=== PATIENT | female | born 1990 | race American Indian/Alaskan Native ===

== ENCOUNTER 2019-12-24 07:18 | Emergency (ER) | payer OTHER ==
[2019-12-24 08:01] LABS: Bacteria,Urine 2+ /HPF (Negative); Bilirubin,Urine NEG (Negative); Blood,Urine LG (Negative); Color,Urine Yellow (Yellow); Urobilinogen,Urine < 2.0 mg/dL (<2.0)
[2019-12-24 08:08] LABS: WBC,Urine > 182.0 /HPF (0.0-6.0)
--- NOTE | 2019-12-24 08:18 | Emergency Department Report ---
ED Female HPI - General Chief complaint: Urogenital-Female Stated complaint: UTI,SIDE PAIN Time Seen by Provider: 12/24/19 07:54 Source: patient Mode of arrival: Ambulatory Limitations: No Limitations - History of Present Illness Initial comments: 29-year-old -[place] female presents to the emergency room for urinary tract symptoms for the last 2 days. Patient reports that she has pelvic pain that radiates to her right lateral abdominal side. Patient also admits to dysuria, cloudy urine and an odor to her urine. Patient denies any unprotected intercourse, no vaginal or vaginal bleeding or discharge. Patient does admit to chills and feels like she has had a fever at times. She does report ibuprofen helps out a lot. Her last dose was this morning. She denies any past medical history currently takes no medications on a daily basis and is allergic to codeine. Patient denies any nausea vomiting and reports she is able to drink without difficulties. MD Complaint: dysuria, pelvic pain Onset/Timin -: days(s) Location: suprapubic Radiation: RLQ Severity scale (0 -10): 7 Quality: sharp Consistency: intermittent Improves with: medication Worsens with: urination Are you Now?: No Last Menstrual Period: 12/01/19 EDC: 09/06/20 Associated Symptoms: fever/chills, dysuria. denies: abdominal pain, nausea/vomiting - Related Data Sexually active: Yes Previous Rx's Medication Instructions Recorded Last Taken Type Nitrofurantoin Taliaferro/M-Cryst 100 mg PO Q12HR 10 Days #20 capsule 12/24/19 Unknown Rx [Macrobid CAP] Allergies Allergy/AdvReac Type Severity Reaction Status Date / Time codeine Allergy Rash Verified 12/24/19 07:22 ED Review of Systems ROS: Stated complaint: UTI,SIDE PAIN Other details as noted in HPI Comment: All other systems reviewed and negative ED Past Medical Hx - Past Medical History Previous Medical History?: Yes - Surgical History Past Surgical History?: Yes Additional Surgical History: Leep procedure - Social History Smoking Status: Never Smoker Substance Use Type: Alcohol - Medications Home Medications: Home Medications Medication Instructions Recorded Confirmed Last Taken Type Nitrofurantoin Taliaferro/M-Cryst 100 mg PO Q12HR 10 Days #20 capsule 12/24/19 Unknown Rx [Macrobid CAP] ED Physical Exam - General Limitations: No Limitations General appearance: alert, in no apparent distress - Head Head exam: Present: atraumatic, normocephalic - Eye Eye exam: Present: normal appearance - ENT ENT exam: Present: mucous membranes moist - Neck Neck exam: Present: normal inspection, full ROM - Respiratory Respiratory exam: Present: normal lung sounds bilaterally - Cardiovascular Cardiovascular Exam: Present: regular rate, normal rhythm, normal heart sounds. Absent: tachycardia - GI/Abdominal GI/Abdominal exam: Present: soft, tenderness (Suprapubic). Absent: distended, guarding, rebound - Back Exam Back exam: Present: normal inspection, full ROM, CVA tenderness (R) - Neurological Exam Neurological exam: Present: alert, oriented X3, normal gait - Psychiatric Psychiatric exam: Present: normal affect, normal mood - Skin Skin exam: Present: warm, dry, intact, normal color. Absent: rash ED Course Vital Signs 12/24/19 07:23 Temperature 99.7 F H Pulse Rate 106 H Respiratory 16 Rate Blood Pressure 109/73 O2 Sat by Pulse 94 Oximetry ED Medical Decision Making - Lab Data Laboratory Tests 12/24/19 07:42 Urine Color Yellow Urine Turbidity Cloudy Urine pH 6.0 Ur Specific Amelia 1.010 Urine Protein 30 mg/dl Urine Glucose (UA) Neg Urine Ketones Neg Urine Blood Lg Urine Nitrite Neg Urine Bilirubin Neg Urine Urobilinogen < 2.0 Ur Leukocyte Esterase Lg Urine WBC (Auto) > 182.0 H Urine RBC (Auto) 70.0 U Epithel Cells (Auto) 19.0 H Urine Bacteria (Auto) 2+ - Medical Decision Making 29-year-old -[place] female presents to the emergency room for urinary tract symptoms for the last 2 days. Patient reports that she has pelvic pain that radiates to her right lateral abdominal side. Patient also admits to dysuria, cloudy urine and an odor to her urine. Patient denies any unprotected intercourse, no vaginal or vaginal bleeding or discharge. Patient does admit to chills and feels like she has had a fever at times. She does report ibuprofen helps out a lot. Her last dose was this morning. She denies any past medical history currently takes no medications on a daily basis and is allergic to codeine. Patient denies any nausea vomiting and reports she is able to drink without difficulties. Patient will be treated with Macrobid encouraged to take ibuprofen. Instructed to increase her water intake. Instructed to follow-up with a community primary care provider to have a repeat urine in 3 to 5 days. Critical care attestation.: If time is entered above; I have spent that time in minutes in the direct care of this critically ill patient, excluding procedure time. ED Disposition Clinical Impression: UTI (urinary tract infection) Disposition: TO HOME OR SELFCARE Is pt being admited?: No Does the pt Need Aspirin: No Condition: Stable Instructions: Urinary Tract Infection in Women (ED) Additional Instructions: Complete your antibiotics as prescribed. Is imperative that you increase your water intake. Do not hold your urine. Tylenol or ibuprofen for pain management. Follow-up with a primary care provider or [facility] [facility] in the next 3 to 5 days to have a repeat urine to see if it is resolving. Prescriptions: Nitrofurantoin Taliaferro/M-Cryst [Macrobid CAP] 100 mg PO Q12HR 10 Days #20 capsule Referrals: VIANEY RICHARDSON MD [Staff Physician] - 3-5 Days RUSSEL MAYO MD [Referring] - 3-5 Days Forms: Work/School Release Form(ED)
[2019-12-24 08:21] LABS: HCG Qualitative,Urine Negative (Negative)
[2019-12-24 08:44] VITALS: BP 100/67
== END 2019-12-24 08:35 | disposition home or self-care (01) ==
LOC: ED 07:18
DX: N39.0 Urinary tract infection, site not specified (principal); Z98.890 Other specified postprocedural states; Z79.899 Other long term (current) drug therapy; Z88.8 Allergy status to other drugs, medicaments and biological substances
CPT/HCPCS: 81001; 81025; 87086